=== PATIENT | male | born 1965 | race Caucasian/White ===

== ENCOUNTER 2018-09-02 12:52 | Emergency (ER) | payer BC ==
[2018-09-02 13:24] VITALS: BP 127/77
--- NOTE | 2018-09-02 14:19 | UC ---
Skin Complaint HPI - HPI Summary HPI Summary: Pt presents with c/o erythematous circular, pruritic area to sternal chest. pt reports that he had a "pimple" to chest that opened and drained ~ 2 months ago. Pt reports that skin is "itchy" but not painful. - History of Current Complaint Chief Complaint: UCSkin Time Seen by Provider: 09/02/18 14:08 Stated Complaint: SKIN CONCERN Hx Obtained From: Patient Onset/Duration: Gradual Onset, Still Present Skin Exposure Onset/Duration: Days Ago Timing: Constant Onset Severity: Mild Current Severity: Mild Pain Intensity: 0 Location: Discrete - chest, sternum Character: Pruritus, Redness Aggravating Factor(s): Touch Alleviating Factor(s): Nothing Associated Signs & Symptoms: Positive: Rash - Allergy/Home Medications Allergies/Adverse Reactions: Allergies Allergy/AdvReac Type Severity Reaction Status Date / Time Penicillins Allergy Intermediate Unknown Verified 09/02/18 13:25 Reaction Details Review of Systems Constitutional: Negative Skin: Rash Eyes: Negative ENT: Negative Respiratory: Negative Cardiovascular: Negative Gastrointestinal: Negative Genitourinary: Negative Motor: Negative Neurovascular: Negative Musculoskeletal: Negative Neurological: Negative Psychological: Negative Is Patient Immunocompromised?: No All Other Systems Reviewed And Are Negative: Yes PMH/Surg Hx/FS Hx/Imm Hx Previously Healthy: Yes - Surgical History Surgical History: Yes Surgery Procedure, Year, and Place: RIGHT CARPAL TUNNEL RELEASE- 09/2014[place] [place] - Family History Known Family History: Positive: Cardiac Disease - Social History Occupation: Employed Full-time Lives: With Family Alcohol Use: Rare Alcohol Amount: [place] Substance Use Type: None Smoking Status (MU): Never Smoked Tobacco Have You Smoked in the Last Year: No Physical Exam Triage Information Reviewed: Yes Appearance: Well-Appearing Vital Signs: Initial Vital Signs Temp 97.5 F 09/02/18 13:21 Pulse 68 09/02/18 13:21 Resp 18 09/02/18 13:21 BP 127/77 09/02/18 13:21 Pulse Ox 98 09/02/18 13:21 Vital Signs Reviewed: Yes Eye Exam: Normal ENT Exam: Normal ENT: Positive: Hearing grossly normal Neck exam: Normal Respiratory Exam: Normal Respiratory: Positive: No respiratory distress Musculoskeletal Exam: Normal Neurological Exam: Normal Psychological Exam: Normal Skin Exam: Normal - cicular erythematous, area ~ quarter size, dry flaky skin, Skin: Positive: rashes Course/Dx - Differential Diagnoses - Skin Complaint Differential Diagnoses: Contact Dermatitis, Eczema, Tinea - Diagnoses Provider Diagnoses: dermatitis Discharge - Sign-Out/Discharge Documenting (check all that apply): Patient Departure All imaging exams completed and their final reports reviewed: No Studies - Discharge Plan Condition: Stable Disposition: HOME Prescriptions: Fluocinolone Acetonide [Synalar] 0.025 % EX Q12H 7 Days #1 tube Patient Education Materials: Dermatitis (ED) Referrals: Ab Wharton MD [Primary Care Provider] - 5 Days - Billing Disposition and Condition Condition: STABLE Disposition: Home - Attestation Statements Provider Attestation: I was available for consult. This patient was seen by the [facility]. The patient was not presented to, seen by, or examined by me. -Tay
== END 2018-09-02 14:38 | disposition home or self-care (01) ==
LOC: UCCORT 12:52
DX: L30.9 Dermatitis, unspecified (principal); Z88.0 Allergy status to penicillin
CPT/HCPCS: 99212; G0463

== ENCOUNTER 2019-03-15 14:30 | Emergency (ER) | payer BC ==
[2019-03-15 15:14] VITALS: BP 121/71
--- NOTE | 2019-03-15 16:07 | UC ---
Elbow Pain - HPI Summary HPI Summary: Pt presents c/o right elbow and shoulder pain. Pt tripped from standing height on 03/12 and then again on 03/14. Pt c/o right elbow and shoulder pain with ROM - History of Current Complaint Chief Complaint: UCUpperExtremity Stated Complaint: RIGHT ARM INJURY Time Seen by Provider: 03/15/19 15:31 Hx Obtained From: Patient Onset/Duration: Days Severity Initially: Mild Severity Currently: Moderate Pain Intensity: 9 Location Of Pain: Is Discrete @ Character: Dull, Aching, Stiffness Aggravating Factor(s): Movement Alleviating Factor(s): Rest Associated Signs And Symptoms: Positive: Negative - Allergies/Home Medications Allergies/Adverse Reactions: Allergies Allergy/AdvReac Type Severity Reaction Status Date / Time Penicillins Allergy Intermediate Unknown Verified 03/15/19 15:08 Reaction Details Home Medications: Home Medications Med For Restless Leg 1 tab BEDTIME 03/15/19 [History Confirmed 03/15/19] PMH/Surg Hx/FS Hx/Imm Hx Previously Healthy: Yes - Surgical History Surgical History: Yes Surgery Procedure, Year, and Place: RIGHT CARPAL TUNNEL RELEASE- 09/2014-[facility] - Family History Known Family History: Positive: Cardiac Disease - Social History Occupation: Employed Full-time Lives: With Family Alcohol Use: Rare Alcohol Amount: [place] Substance Use Type: None Smoking Status (MU): Never Smoked Tobacco Have You Smoked in the Last Year: No - Immunization History Most Recent Tetanus Shot: UTD Review of Systems All Other Systems Reviewed And Are Negative: Yes Constitutional: Positive: Negative Skin: Positive: Negative Eyes: Positive: Negative ENT: Positive: Negative Respiratory: Positive: Negative Cardiovascular: Positive: Negative Gastrointestinal: Positive: Negative Genitourinary: Positive: Negative Motor: Positive: Negative Neurovascular: Positive: Negative Musculoskeletal: Positive: Arthralgia, Myalgia Neurological: Positive: Negative Psychological: Positive: Negative Is Patient Immunocompromised?: No Physical Exam Triage Information Reviewed: Yes Appearance: Well-Appearing Vital Signs: Initial Vital Signs Temp 97.3 F 03/15/19 15:08 Pulse 72 03/15/19 15:08 Resp 16 03/15/19 15:08 BP 121/71 03/15/19 15:08 Pulse Ox 100 03/15/19 15:08 Vital Signs Reviewed: Yes Eye Exam: Normal ENT Exam: Normal Dental Exam: Normal Neck exam: Normal Respiratory Exam: Normal Respiratory: Positive: Respiratory distress Musculoskeletal: Positive: Strength Intact, ROM Intact Neurological Exam: Normal Psychological Exam: Normal Skin Exam: Normal Diagnostics - Radiology No standard instances Radiology Interpretation Completed By: Radiologist - 4 views of the right shoulder demonstrates no fracture or dislocation. No other bone or joint abnormality is identified. IMPRESSION: No fracture of the right shoulder is noted. 4 views of the right elbow demonstrates no fracture. No other bone or joint abnormalities identified. No joint effusion is noted. IMPRESSION: No fracture of the right elbow is note Elbow Pain Course/Dx - Differential Dx/Diagnosis Differential Diagnosis/HQI/PQRI: Fracture (Closed), Sprain, Strain Provider Diagnosis: Right elbow pain, Right shoulder strain Discharge - Sign-Out/Discharge Documenting (check all that apply): Patient Departure All imaging exams completed and their final reports reviewed: Yes - Discharge Plan Condition: Stable Disposition: HOME Patient Education Materials: Elbow Sprain (ED), Shoulder Pain (ED) Referrals: Ab Wharton MD [Primary Care Provider] - If Needed - Billing Disposition and Condition Condition: STABLE Disposition: Home
== END 2019-03-15 17:14 | disposition home or self-care (01) ==
LOC: UCCORT 14:30
DX: S43.401A Unspecified sprain of right shoulder joint, initial encounter (principal); M25.521 Pain in right elbow; Z88.0 Allergy status to penicillin; W18.49XA Other slipping, tripping and stumbling without falling, initial encounter; Y92.9 Unspecified place or not applicable
CPT/HCPCS: 99211; G0463